=== PATIENT | female | born 1990 | race African-American/Black ===

== ENCOUNTER 2021-12-04 00:17 | Emergency (ER) | payer OTHER ==
[~2021-12-04] VITALS: Ht 157.5 cm; Wt 59.0 kg
--- NOTE | 2021-12-04 00:50 | NUR ---
Dr. Retana at bedside for MSE.
[2021-12-04 01:35] LABS: *BILIRUBIN,URIN NEGATIVE (NEGATIVE); *BLOOD, URINE NEGATIVE (NEGATIVE); *CLARITY,URINE CLEAR (CLEAR); *COLOR,URINE YELLOW (YELLOW); *KETONES,URINE NEGATIVE (NEGATIVE); *UROBILINOGEN,URINE 0.2 E.U./dl (NORMAL); LEUKOCYTE ESTERASE ,URINE NEGATIVE (NEGATIVE); NITRITE, URINE NEGATIVE (NEGATIVE); PH,URINE 6.5 (5.0-8.0); UGLUCOSE NEGATIVE (NEGATIVE)
[2021-12-04 01:38] LABS: *URINE HCG, QUAL NEGATIVE (NEGATIVE)
[2021-12-04 01:40] LABS: HEMATOCRIT 36.6 % (31.2-41.9); MEAN CORPUSCULAR HEMOGLOBIN 33.8 uug (24.7-32.8); MEAN CORPUSCULAR VOLUME 100.1 fL (75.5-95.3); PLATELET COUNT (AUTO) 300 K/uL (179-408)
[2021-12-04] MEDS: PENICILLIN G BENZATHINE 2.4 MMU/4 ML DISP.SYRIN IM ONE ×2 (01:45→03:22)
[2021-12-04 01:46] LABS: CREATININE 1.1 mg/dL (0.6-1.3); POTASSIUM 3.8 mmol/L (3.5-5.1)
[2021-12-04 01:51] LABS: BILIRUBIN,DIRECT 0.1 mg/dL (0.0-0.2); BILIRUBIN,TOTAL 0.3 mg/dL (0.2-1.0); TOTAL PROTEIN, SERUM 6.3 g/dL (6.4-8.2)
--- NOTE | 2021-12-04 02:12 | NUR ---
Patient discharged to home in stable condition. Written and verbal after care instructions given. Patient verbalizes understanding of instructions. Stressed follow up or return to ER for worsening s/s. Patient out of ER with steady gait, no acute signs of distress, VSS, all belongings taken.
[2021-12-04 02:13] VITALS: BP 116/68
[2021-12-04] MEDS ORDERED: PENICILLIN G BENZATHINE 2.4 MMU/4 ML DISP.SYRIN IM ONE (03:08)
[2021-12-06 00:06] LABS: *GC NAA Negative (Negative)
[2021-12-06 02:06] LABS: *TRIC.VAG. NAA Negative (Negative)
== END 2021-12-04 02:13 | disposition home or self-care (01) ==
LOC: ER 00:24
DX: Z20.2 Contact with and (suspected) exposure to infections with a predominantly sexual mode of transmission (principal); R60.0 Localized edema; F17.210 Nicotine dependence, cigarettes, uncomplicated
CPT/HCPCS: 99283; 99406; 86592; 80076; 80048; 81003; 84703; 85025; 87086; 36415; 96372; 87491; J0561; A4663

== ENCOUNTER 2022-06-08 05:25 | Emergency (ER) | payer OTHER ==
[~2022-06-08] VITALS: Ht 160 cm; Wt 73.9 kg
--- NOTE | 2022-06-08 06:02 | NUR ---
Patient's boyfriend in room at bedside.
[2022-06-08 06:08] LABS: HEMATOCRIT 40.5 % (31.2-41.9); MEAN CORPUSCULAR HEMOGLOBIN 32.2 uug (24.7-32.8); MEAN CORPUSCULAR VOLUME 97.9 fL (75.5-95.3); PLATELET COUNT (AUTO) 410 K/uL (179-408)
[2022-06-08 06:29] LABS: BILIRUBIN,TOTAL 0.4 mg/dL (0.2-1.0); TOTAL PROTEIN, SERUM 7.3 g/dL (6.4-8.2)
--- NOTE | 2022-06-08 07:07 | NUR ---
Gave report to Donato MATTHEWS.
[2022-06-08] MEDS ORDERED: IV NORMAL SALINE 1000 ML BAG IV ONE (08:30)
[2022-06-08] MEDS ORDERED: FURO-152 PO (08:50)
[2022-06-08] MEDS ORDERED: POTA-194 PO (08:50)
--- NOTE | 2022-06-08 08:58 | NUR ---
Patient discharged to home in stable condition. Written and verbal after care instructions given. Patient verbalizes understanding of instructions. Stressed follow up or return to ER for worsening s/s.
[2022-06-08 08:59] VITALS: BP 123/70
== END 2022-06-08 09:00 | disposition home or self-care (01) ==
LOC: ER 05:30
DX: R60.0 Localized edema (principal); F15.10 Other stimulant abuse, uncomplicated; F17.210 Nicotine dependence, cigarettes, uncomplicated
CPT/HCPCS: 36415; 71045; 85025; A4663

== ENCOUNTER 2022-11-05 00:36 | Emergency (ER) | payer OTHER ==
[~2022-11-05] VITALS: Ht 165.1 cm; Wt 68.0 kg
[~2022-11-05 00:36] MED LIST: FURO-152 PO; POTA-194 PO
[2022-11-05 01:40] LABS: BASOPHILS % (AUTO) 0.4 % (0.0-2.0); EOSINOPHILS # (AUTO) 0.1 K/uL (0.0-0.7); EOSINOPHILS % (AUTO) 1.4 % (0.0-7.0); HEMATOCRIT 35.5 % (31.2-41.9); LYMPHOCYTES # (AUTO) 2.2 K/uL (0.8-4.8); LYMPHOCYTES % (AUTO) 22.2 % (20.5-51.5); MEAN CORPUSCULAR HEMOGLOBIN 31.5 uug (24.7-32.8); MEAN CORPUSCULAR HGB CONC 34 g/dL (32.3-35.6); MEAN CORPUSCULAR VOLUME 93.5 fL (75.5-95.3); MONOCYTES # (AUTO) 0.6 K/uL (0.1-1.30); MONOCYTES % (AUTO) 6.3 % (0.0-11.0); NEUTROPHILS # (AUTO) 6.8 K/uL (1.8-8.9); NEUTROPHILS % (AUTO) 69.7 % (38.5-71.5); PLATELET COUNT (AUTO) 306 K/uL (179-408); RED CELL DISTRIBUTION WIDTH 14.6 % (12.3-17.7); WHITE BLOOD COUNT (AUTO) 9.7 K/uL (3.8-11.8)
[2022-11-05 01:49] LABS: DIFFERENTIAL COMMENT 1
[2022-11-05 02:03] LABS: BILIRUBIN,TOTAL 0.3 mg/dL (0.2-1.0); CALCIUM 8.6 mg/dL (8.5-10.1); CREATININE 0.9 mg/dL (0.6-1.3); TOTAL PROTEIN, SERUM 6.5 g/dL (6.4-8.2)
[2022-11-05 03:00] VITALS: O2SAT 100
[2022-11-05 03:39] LABS: *BILIRUBIN,URIN NEGATIVE (NEGATIVE); *BLOOD, URINE 3+ (NEGATIVE); *KETONES,URINE NEGATIVE (NEGATIVE); *PROTEIN,URINE TRACE (NEGATIVE); *UROBILINOGEN,URINE 0.2 E.U./dl (NORMAL); LEUKOCYTE ESTERASE ,URINE 1+ (NEGATIVE); NITRITE, URINE NEGATIVE (NEGATIVE); UGLUCOSE NEGATIVE (NEGATIVE)
[2022-11-05 04:23] LABS: *CLARITY,URINE SLIGHTLY CLOUDY (CLEAR); *COLOR,URINE YELLOW (YELLOW)
[2022-11-05] MEDS ORDERED: CEPH500C2 PO (04:33)
[2022-11-05 04:40] LABS: RBC,URINE 80-100 /HPF (0-3)
[2022-11-05 04:41] LABS: BACTERIA,URINE MODERATE /HPF (NONE SEEN); SQUAMOUS EPITHELIAL CELL,UR FEW /HPF (NONE SEEN)
== END 2022-11-05 06:30 | disposition left against medical advice (07) ==
LOC: ER 00:38
DX: O23.41 Unspecified infection of urinary tract in pregnancy, first trimester (principal); N39.0 Urinary tract infection, site not specified; O99.331 Smoking (tobacco) complicating pregnancy, first trimester; F17.210 Nicotine dependence, cigarettes, uncomplicated; R10.2 Pelvic and perineal pain; Z79.899 Other long term (current) drug therapy; Z3A.08 8 weeks gestation of pregnancy
CPT/HCPCS: 36415; 70030-TC; 83690; 85025; 86900; 86901; A4663